=== PATIENT | male | born 1980 | race African-American/Black ===

== ENCOUNTER 2017-08-06 15:52 | Inpatient (IN) ==
[2017-08-06] MEDS ORDERED: ONDANSETRON 4 MG/2 ML VIAL IV PRN (20:15)
[2017-08-06] MEDS ORDERED: ACETAMINOPHEN 325 MG TABLET PO PRN (20:15)
[2017-08-06] MEDS ORDERED: hydrALAZINE 20 MG/1 ML VIAL IV PRN (20:17)
[2017-08-06] MEDS: LACTATED RINGERS 1,000 ML IV SCH (22:19)
[2017-08-06] MEDS: metroNIDAZOLE INJ 500 MG in PREMIX 1 EACH IV SCH (22:19)
[2017-08-07] MEDS: MORPHINE 2 MG/1 ML SYRINGE IV PRN ×2 (00:17→08:09)
[2017-08-07] MEDS: PIPERACILLIN/TAZOBACTAM 3,375 MG in SODIUM CHLORIDE 0.9% 100 ML IV SCH ×4 (00:17→22:57)
[2017-08-07 06:28] LABS: Basophils % 0.1 % (0.0-0.8); Eosinophils % 0.1 % (0.00-10.9); Hematocrit 38.1 VOL% (42.0-52.0); Hemoglobin 12.3 GM/DL (14.0-18.0); Immature Granulocytes % 0.5 %; Immature Granulocytes Absolute 0.05 #; Lymphocytes % 10.3 % (21.2-54.2); Mean Corpuscular HGB Conc 32.3 GM/DL (32-36); Mean Corpuscular Hemoglobin 25 PG (27-34); Mean Corpuscular Volume 76.2 FL (87-102); Mean Platelet Volume 10.7 FL (9.6-12.0); Monocytes # 0.4 10*3/uL (0.11-0.8); Monocytes % 4.3 % (1.7-12.7); Neutrophils # 8.6 10*3/uL (1.4-7.4); Neutrophils % 84.7 % (38.7-73.9); Platelet Count 242 T/CUMM (130-400); Red Cell Distribution Width 14.8 % (9.3-17.3); White Blood Count 10.1 T/CUMM (4-12)
[2017-08-07] MEDS: metroNIDAZOLE INJ 500 MG in PREMIX 1 EACH IV SCH ×3 (06:42→21:05)
[2017-08-07 06:51] LABS: Osmolality,Calculated 273.7 MOS/KG (273-304); Potassium 3.9 MMOL/L (3.5-5.1)
[2017-08-07] MEDS: PANTOPRAZOLE 40 MG TABLET PO SCH (08:18)
[2017-08-07] MEDS: LACTATED RINGERS 1,000 ML IV SCH ×3 (08:55→22:57)
[2017-08-07] MEDS ORDERED: MORPHINE 10 MG/1 ML VIAL IV PRN (11:30)
[2017-08-07] MEDS ORDERED: fentaNYL 100 MCG/2 ML VIAL ONE (12:46)
[2017-08-07] MEDS ORDERED: SEVOFLURANE 1 UNIT/15 MINUTE INH ONE (12:46)
[2017-08-07] MEDS ORDERED: MIDAZOLAM 2 MG/2 ML VIAL ONE (12:46)
[2017-08-07] MEDS ORDERED: ONDANSETRON 4 MG/2 ML VIAL ONE (12:46)
[2017-08-07] MEDS ORDERED: PROPOFOL 200 MG/20 ML VIAL IV ONE (12:46)
[2017-08-07] MEDS ORDERED: GLYCOPYRROLATE 0.4 MG/2 ML VIAL ONE (12:47)
[2017-08-07] MEDS ORDERED: NEOSTIGMINE 10 MG/10 ML VIAL ONE (12:47)
[2017-08-07] MEDS ORDERED: ROCURONIUM 100 MG/10 ML VIAL IV ONE (12:47)
[2017-08-07] MEDS: LISINOPRIL/HCTZ 20-12.5 MG TABLET PO SCH (14:57)
[2017-08-07] MEDS: amLODIPine 10 MG TABLET PO SCH (14:57)
[2017-08-08] MEDS: LACTATED RINGERS 1,000 ML IV SCH ×2 (04:58→15:36)
[2017-08-08] MEDS: metroNIDAZOLE INJ 500 MG in PREMIX 1 EACH IV SCH ×2 (05:00→16:44)
[2017-08-08] MEDS: PIPERACILLIN/TAZOBACTAM 3,375 MG in SODIUM CHLORIDE 0.9% 100 ML IV SCH ×2 (06:10→18:09)
[2017-08-08] MEDS: LISINOPRIL/HCTZ 20-12.5 MG TABLET PO SCH (08:25)
[2017-08-08] MEDS: PANTOPRAZOLE 40 MG TABLET PO SCH (08:26)
[2017-08-08] MEDS: amLODIPine 10 MG TABLET PO SCH (08:26)
[2017-08-08 11:30] VITALS: BP 128/75
== END 2017-08-08 18:38 | disposition home or self-care (01) | DRG 343 ==
LOC: N.3E 19:13
PROVIDERS: ADMIT Surgery; ATTEND Surgery